=== PATIENT | female | born 1930 | race Caucasian/White ===

== ENCOUNTER 2017-06-04 08:53 | Emergency (ER) | payer MEDICARE ==
[~2017-06-04] VITALS: Ht 157.5 cm; Wt 72.0 kg
[~2017-06-04 08:53] MED LIST: B COMPLE2 PO; BACTRIM DS1 TAB PO; BL ADULT ASA81 MG PO; CHLORTHALIDONE25 MG PO; COREG12.5 MG PO; FELODIPINE ER5 MG PO; HYDROCHLOROT25 MG PO; LORTAB5 PO; LOSARTAN POT50 MG PO; LOSARTAN POTAS100 MG PO; SIMVASTATIN80 MG PO; TOPROL XL100 MG PO; VIGAMOX OU
[2017-06-04] MEDS ORDERED: AMLODIPINE5 MG PO (09:15)
[2017-06-04] MEDS ORDERED: CARVEDILOL25 MG PO (09:16)
[2017-06-04] MEDS ORDERED: ECOTRIN LOW STR81 MG PO (09:16)
[2017-06-04] MEDS ORDERED: B COMPLE2 PO (09:17)
[2017-06-04] MEDS ORDERED: LOSARTAN POTASS50 MG PO (09:17)
[2017-06-04 10:24] LABS: INFLUENZA A NONE DETECTED (NONE DETECT); INFLUENZA B NONE DETECTED (NONE DETECT)
[2017-06-04] MEDS ORDERED: AMOXICILLIN500 MG PO (11:05)
[2017-06-04 11:13] VITALS: BP 129/78
== END 2017-06-04 11:13 | disposition home or self-care (01) ==
LOC: ED 08:53
PROVIDERS: Emergency Medicine
DX: J02.0 Streptococcal pharyngitis (principal); J40 Bronchitis, not specified as acute or chronic; R05 Cough; R06.02 Shortness of breath; I10 Essential (primary) hypertension